=== PATIENT | female | born 1935 | race Asian ===

== ENCOUNTER 2021-02-10 09:04 | Inpatient (IN) | payer MEDICARE ==
[~2021-02-10] VITALS: Ht 154.9 cm; Wt 55.7 kg
[2021-02-10 11:11] LABS: BASOPHILS % (AUTO) 0.9 % (0.0-2.0); HEMATOCRIT 21.8 % (36-46); HEMOGLOBIN 7.2 g/dL (12.0-16.0); LYMPHOCYTES # (AUTO) 0.4 K/uL (1.0-4.8); LYMPHOCYTES % (AUTO) 7.6 % (22.0-44.0); MEAN CORPUSCULAR HEMOGLOBIN 36.9 pg (26.0-34.0); MEAN CORPUSCULAR VOLUME 112 fL (80-100); MONOCYTES # (AUTO) 0.7 K/uL (0.1-1.0); MONOCYTES % (AUTO) 12.5 % (2.0-9.0); NEUTROPHILS # (AUTO) 4.2 K/uL (1.8-7.7); PLATELET COUNT (AUTO) 198 K/uL (150-450); RED BLOOD CELL COUNT(AUTO) 1.95 MIL/uL (4.00-5.20); RED CELL DISTRIBUTION WIDTH 17.6 % (11.5-14.5)
[2021-02-10 11:13] LABS: CALCIUM, TOTAL 8.8 mg/dL (8.8-10.5); CREATININE 4.34 mg/dL (0.60-1.30); POTASSIUM 3.8 mmol/L (3.5-5.1)
[2021-02-10 11:21] LABS: ALBUMIN 2.8 g/dL (3.4-5.0); BILIRUBIN,TOTAL 0.3 mg/dL (0.1-1.0); TOTAL PROTEIN, SERUM 6.2 g/dL (6.4-8.2)
[2021-02-10] MEDS ORDERED: ACETAMINOPHEN 325 MG TABLET PO ONE (11:30)
[2021-02-10 12:41] LABS: COVID AG,FIA SOURCE NASOPHARYNGEAL
[2021-02-10] MEDS ORDERED: ONDANSETRON HCL 4 MG/2 ML VIAL IVP PRN (14:15)
[2021-02-10] MEDS ORDERED: BISACODYL 10 MG RECTAL RECTAL SUPPOSITORY PR PRN (14:15)
[2021-02-10] MEDS ORDERED: ACETAMINOPHEN 325 MG TABLET PO PRN (14:15)
[2021-02-10] MEDS ORDERED: MAGNESIUM HYDROXIDE SUSPENSION 30 ML UDCUP PO PRN (14:15)
[2021-02-10] MEDS ORDERED: ZOLPIDEM TARTRATE 5 MG TABLET PO PRN (14:15)
[2021-02-10] MEDS ORDERED: MORPHINE SULFATE 2 MG/ML SYRINGE IVP PRN (14:15)
[2021-02-10] MEDS ORDERED: HYDROCODONE/ACETAMINOPHEN 5-325 MG TABLET PO PRN (14:15)
[2021-02-10] MEDS ORDERED: ALPRAZolam 0.5 MG TABLET PO ONE (14:30)
[2021-02-10] MEDS ORDERED: MIRT-89 PO (14:53)
[2021-02-10] MEDS ORDERED: INSLAN SQ (14:55)
[2021-02-10] MEDS ORDERED: SODI650T33 PO (14:56)
[2021-02-10] MEDS ORDERED: [UNRECOGNIZED DRUG - CODE] PO (14:57)
[2021-02-10] MEDS ORDERED: PHOSLOC PO (14:58)
[2021-02-10] MEDS ORDERED: OMEP20 PO (14:59)
[2021-02-10] MEDS ORDERED: GABA-1216 PO (15:00)
[2021-02-10] MEDS ORDERED: ATOR20TA86 PO (15:01)
[2021-02-10] MEDS ORDERED: APIX2.5T PO (15:02)
[2021-02-10] MEDS ORDERED: BUME1TAB34 PO (15:02)
[2021-02-10] MEDS ORDERED: METO25 PO (15:04)
[2021-02-10] MEDS ORDERED: HYDR50TA36 PO (15:05)
[2021-02-10] MEDS ORDERED: EPOETIN ALFA 10,000 UNITS/ML VIAL SQ SCH (15:15)
[2021-02-10] MEDS ORDERED: HEPARIN SODIUM,PORCINE 5,000 UNITS/ML VIAL SQ SCH (16:00)
[2021-02-10] MEDS: VITAMIN B COMP/VIT C/FOLIC ACID CAPSULE PO SCH (16:30)
[2021-02-10] MEDS: DOCUSATE SODIUM 100 MG CAPSULE PO SCH (21:00)
[2021-02-11] MEDS ORDERED: LORazepam 2 MG/ML VIAL IVP ONE ×2 (04:15→16:30)
[2021-02-11 05:09] LABS: EOSINOPHILS % (AUTO) 0.5 % (1.0-6.0); HEMATOCRIT 25.3 % (36-46); HEMOGLOBIN 8.3 g/dL (12.0-16.0); LYMPHOCYTES # (AUTO) 0.2 K/uL (1.0-4.8); LYMPHOCYTES % (AUTO) 3.3 % (22.0-44.0); MEAN CORPUSCULAR HEMOGLOBIN 37.1 pg (26.0-34.0); MEAN CORPUSCULAR HGB CONC 32.7 G/dL (31.0-37.0); MEAN CORPUSCULAR VOLUME 113 fL (80-100); MONOCYTES # (AUTO) 0.5 K/uL (0.1-1.0); MONOCYTES % (AUTO) 7.5 % (2.0-9.0); NEUTROPHILS # (AUTO) 6.3 K/uL (1.8-7.7); PLATELET COUNT (AUTO) 160 K/uL (150-450); RED BLOOD CELL COUNT(AUTO) 2.23 MIL/uL (4.00-5.20); RED CELL DISTRIBUTION WIDTH 18.3 % (11.5-14.5)
[2021-02-11 05:28] LABS: NEUTROPHILS % (AUTO) 88.7 % (40.0-70.0)
[2021-02-11 05:38] LABS: CALCIUM, TOTAL 9.2 mg/dL (8.8-10.5); CREATININE 2.37 mg/dL (0.60-1.30)
[2021-02-11 06:07] LABS: PLATELET MORPHOLOGY COMMENT LARGE PLTS PRESENT
[2021-02-11] MEDS: CALCIUM ACETATE 667 MG CAPSULE PO SCH ×3 (08:00→18:09)
[2021-02-11] MEDS ORDERED: INSULIN GLARGINE,HUM.REC.ANLOG 100 UNITS/ML SQ SCH (09:00)
[2021-02-11] MEDS: HydrALAZINE HCL 50 MG TABLET PO SCH ×2 (09:00→21:00)
[2021-02-11] MEDS: METOPROLOL TARTRATE 25 MG TABLET PO SCH ×2 (09:29→21:41)
[2021-02-11] MEDS: DOCUSATE SODIUM 100 MG CAPSULE PO SCH ×2 (09:29→21:00)
[2021-02-11] MEDS: PANTOPRAZOLE SODIUM 40 MG DR TABLET PO SCH (09:29)
[2021-02-11] MEDS: ATORVASTATIN CALCIUM 20 MG TABLET PO SCH (09:30)
[2021-02-11] MEDS ORDERED: DEXTROSE 50%-WATER 25 GM/50 ML SYRINGE IVP ONE ×2 (10:15)
[2021-02-11 10:45] LABS: GLUCOSE,POINT OF CARE 50 MG/DL (70-110)
[2021-02-11 10:45] LABS: GLUCOSE,POINT OF CARE 50 MG/DL (70-110)
[2021-02-11 10:52] VITALS: BP 114/36
[2021-02-11] MEDS ORDERED: DEXTROSE 50%-WATER 25 GM/50 ML SYRINGE IVP PRN (11:30)
[2021-02-11 11:35] LABS: GLUCOMETER DEV NAME(LOC) 5S.2B; GLUCOSE,POINT OF CARE 161 MG/DL (70-110)
[2021-02-11 12:50] VITALS: BP 140/48
[2021-02-11 12:51] VITALS: BP 140/48
[2021-02-11] MEDS: VITAMIN B COMP/VIT C/FOLIC ACID CAPSULE PO SCH (12:52)
[2021-02-11] MEDS: SODIUM BICARBONATE 650 MG TABLET PO SCH ×2 (12:52→21:27)
[2021-02-11] MEDS: BUMETANIDE 1 MG TABLET PO SCH (12:52)
[2021-02-11] MEDS: APIXABAN 2.5 MG TABLET PO SCH ×2 (12:52→21:05)
[2021-02-11 16:23] VITALS: BP 133/62
[2021-02-11 18:53] LABS: GLUCOMETER DEV NAME(LOC) 5S.2B; GLUCOSE,POINT OF CARE 68 MG/DL (70-110)
[2021-02-11 18:53] LABS: GLUCOMETER DEV NAME(LOC) 5S.2B; GLUCOSE,POINT OF CARE 101 MG/DL (70-110)
[2021-02-11 20:18] VITALS: BP 139/44
[2021-02-11] MEDS ORDERED: MIRTAZAPINE 15 MG TABLET PO SCH (21:00)
[2021-02-11] MEDS ORDERED: GABAPENTIN 100 MG CAPSULE PO SCH (21:00)
[2021-02-12 01:00] VITALS: BP 132/56
[2021-02-12 04:15] VITALS: BP 135/75
[2021-02-12 07:04] LABS: GLUCOMETER DEV NAME(LOC) 5S.1; GLUCOSE,POINT OF CARE 80 MG/DL (70-110)
[2021-02-12 07:04] LABS: GLUCOMETER DEV NAME(LOC) 5S.2B; GLUCOSE,POINT OF CARE 97 MG/DL (70-110)
[2021-02-12 08:05] VITALS: BP 147/46
[2021-02-12] MEDS: BUMETANIDE 1 MG TABLET PO SCH (08:47)
[2021-02-12] MEDS: APIXABAN 2.5 MG TABLET PO SCH (08:47)
[2021-02-12] MEDS: VITAMIN B COMP/VIT C/FOLIC ACID CAPSULE PO SCH (08:47)
[2021-02-12] MEDS: METOPROLOL TARTRATE 25 MG TABLET PO SCH (08:47)
[2021-02-12] MEDS: SODIUM BICARBONATE 650 MG TABLET PO SCH (08:47)
[2021-02-12] MEDS: ATORVASTATIN CALCIUM 20 MG TABLET PO SCH (08:48)
[2021-02-12] MEDS: CALCIUM ACETATE 667 MG CAPSULE PO SCH ×2 (08:48→11:58)
[2021-02-12] MEDS: DOCUSATE SODIUM 100 MG CAPSULE PO SCH (08:48)
[2021-02-12] MEDS: PANTOPRAZOLE SODIUM 40 MG DR TABLET PO SCH (08:48)
[2021-02-12 11:44] VITALS: BP 150/52
[2021-02-12] MEDS: HydrALAZINE HCL 50 MG TABLET PO SCH (11:59)
[2021-02-12 15:19] VITALS: BP 151/66
[2021-02-12] MEDS ORDERED: DOCU-270 PO (16:30)
[2021-02-12] MEDS ORDERED: PANT-31 PO (16:55)
[2021-02-12] MEDS ORDERED: B CO1CAP6 PO (16:57)
[2021-02-12 20:20] LABS: GLUCOMETER DEV NAME(LOC) 5S.1; GLUCOSE,POINT OF CARE 125 MG/DL (70-110)
== END 2021-02-12 16:50 | DRG 291 ==
LOC: EMS 09:04 → 5S 14:11
PROVIDERS: ADMIT Internal Medicine; ATTEND Internal Medicine
PROC: 5A1D70Z Performance of Urinary Filtration, Intermittent, Less than 6 Hours Per Day (ICD-10-PCS; principal; 2021-02-11)
DX: I13.2 Hypertensive heart and chronic kidney disease with heart failure and with stage 5 chronic kidney disease, or end stage renal disease (principal); I50.31 Acute diastolic (congestive) heart failure; N18.6 End stage renal disease; U07.1 COVID-19; I48.20 Chronic atrial fibrillation, unspecified; D63.1 Anemia in chronic kidney disease; M19.90 Unspecified osteoarthritis, unspecified site; E78.5 Hyperlipidemia, unspecified; E11.22 Type 2 diabetes mellitus with diabetic chronic kidney disease; E11.649 Type 2 diabetes mellitus with hypoglycemia without coma; Z79.01 Long term (current) use of anticoagulants; Z79.4 Long term (current) use of insulin; Z79.899 Other long term (current) drug therapy; Z93.3 Colostomy status; Z99.2 Dependence on renal dialysis; Z90.49 Acquired absence of other specified parts of digestive tract
CPT/HCPCS: 71045; 80048; 80053; 82948; 82962; 83036; 83540; 83550; 83690; 83880; 84100; 84484; 85025; 87081; 87340; 90935; 93005; 99285; G0378; J0885; J1815; J2060; J2270; 36415-L1; 36415-TC; U0003